=== PATIENT | female | born 1935 | race African-American/Black ===

== ENCOUNTER 2025-01-11 08:29 | Inpatient (IN) | payer MEDICARE ==
[~2025-01-11] VITALS: Ht 162.6 cm; Wt 50.8 kg
[~2025-01-11 08:29] MED LIST: AMLO5TAB88 PO; ASPI-1497 PO; ATOR20TA65 PO; AZOPT EACHEYE; BUDE0.5A3; CALC-586 PO; CALC0.253 MT; FAMO20TA8 PO; FLUT16SP15 BOTHNSTRLS; LATA2.5D14 EACHEYE; LEVO137T2 PO; LIDO-53 TP; MEGE400O40 PO; MIRA25TA PO; OMEP20CA14 PO; SODI650T PO; VERA180C3 PO
[2025-01-11 09:41] LABS: BASOPHILS % 0.3 % (0.0-2.0); EOSINOPHILS % 0.9 % (0.0-5.0); HEMATOCRIT. 32.0 % (36.0-48.0); HEMOGLOBIN. 10.5 g/dL (12.0-16.0); LYMPHOCYTES % 20.6 % (20.0-50.0); MEAN PLATELET VOLUME 7.0 fl (7.4-10.4); MONOCYTES % 8.6 % (2.0-8.0); NEUTROPHILS % 69.6 % (40.0-76.0); PLATELET 364 x1000/uL (130-400); RED BLOOD CELL COUNT 3.62 mill/uL (4.2-5.4); RED CELL DISTRIBUTION WIDTH 14.7 % (11.6-14.6)
[2025-01-11 09:48] LABS: CREATININE 3.6 mg/dL (0.6-1.0); UREA NITROGEN BLOOD 55 mg/dL (9-23)
[2025-01-11 09:49] LABS: TROPONIN I HIGH SENSITIVITY 20 ng/L (3.0-34)
[2025-01-11] MEDS ORDERED: ACETAMINOPHEN 325MG TABLET PO PRN (11:30)
[2025-01-11] MEDS ORDERED: DOCUSATE SODIUM 100MG CAPSULE PO PRN (11:30)
[2025-01-11] MEDS ORDERED: ONDANSETRON HCL 4MG/2ML INJ IV PRN (11:30)
[2025-01-11] MEDS ORDERED: SODIUM BICARBONATE 8.4% 50MEQ/50ML SYR IV SCH (12:45)
[2025-01-11] MEDS: ENOXAPARIN 30MG/0.3ML SYR SUBCUT SCH (13:00)
[2025-01-11 13:26] LABS: BG BASE EXCESS -3.5 mmol/L (-2.0-3.0); BG CARBOXYHEMOGLOBIN 0.1 % (0.5-1.5); BG DEOXYHEMOGLOBIN 2.2 % (0.0-5.0); BG FRACTION INSPIRED OXYGEN 32; BG HCO3 ACT 18.0 mmol/L (21.0-28.0); BG METHEMOGLOBIN 0.3 % (0.5-1.5); BG OXYGEN SATURATION 97.8 % (94.0-98.0); BG OXYHEMOGLOBIN 97.4 % (94.0-98.0); BG PCO2 22.6 mmHg (32.0-45.0); BG PH 7.520 (7.350-7.450); BG PO2 97.8 mmHg (83.0-108.0); BG SAMPLE SITE RIGHT RADIAL; BG TOTAL HEMOGLOBIN 10.3 g/dL (12.0-16.0); BG VENT MODE NASAL CANNULA
[2025-01-11] MEDS: FUROSEMIDE 100MG/10ML VIAL IVP ONE (13:45)
[2025-01-11 15:50] LABS: CREATINE KINASE MB FRACTION 5.4 ng/mL (0.5-3.6); TROPONIN I HIGH SENSITIVITY 16.0 ng/L (3.0-34)
[2025-01-11 16:30] VITALS: BP 136/78; PULSE 88; RESP 22; TEMP 36.4; O2SAT 100
[2025-01-11 17:23] VITALS: BP 136/68; PULSE 88; RESP 22; TEMP 36.4736
[2025-01-11] MEDS: POLYETHYLENE GLYCOL 3350 (17GM) 1 DOSE PACK PO SCH (17:48)
[2025-01-11 18:10] LABS: CLARITY URINE CLEAR (CLEAR); COLOR URINE YELLOW (YELLOW); GLUCOSE URINE NEGATIVE (NEGATIVE); KETONES URINE NEGATIVE (NEGATIVE); LEUKOCYTE ESTERASE URINE NEGATIVE (NEGATIVE); NITRITE URINE NEGATIVE (NEGATIVE); OCCULT BLOOD URINE NEGATIVE (NEGATIVE); PH URINE 5.5 (4.5-8.0); PROTEIN URINE 1+ (NEGATIVE); SPECIFIC GRAVITY URINE 1.010 (1.005-1.030); UROBILINOGEN URINE 0.2 E.U./dL (0.2-1.0)
[2025-01-11 18:31] LABS: PROTEIN URINE RANDOM 30.0 mg/dL
[2025-01-11 18:34] LABS: CREATININE URINE RANDOM 46.4 mg/dL
[2025-01-11 18:41] LABS: BACTERIA URINE NONE SEEN; RBC URINE NONE SEEN /hpf (0-2); SQUAMOUS EPITHELIAL CELL URINE NONE SEEN /lpf (RARE/1+); WBC URINE NONE SEEN /hpf (0-2)
[2025-01-11 20:00] VITALS: BP 167/82; PULSE 85; RESP 18; TEMP 36.7; O2SAT 97
[2025-01-11] MEDS: ATORVASTATIN CALCIUM 20MG TABLET PO SCH (20:24)
[2025-01-12] VITALS: BP 136/81; PULSE 78; RESP 20; TEMP 37; O2SAT 99
[2025-01-12 04:00] VITALS: BP 152/89; PULSE 85; RESP 20; TEMP 36.7; O2SAT 99
[2025-01-12] MEDS: LEVOTHYROXINE SODIUM 137MCG TABLET PO SCH (06:30)
[2025-01-12 07:04] LABS: BASOPHILS % 0.3 % (0.0-2.0); EOSINOPHILS % 1.5 % (0.0-5.0); HEMATOCRIT. 32.6 % (36.0-48.0); HEMOGLOBIN. 11.2 g/dL (12.0-16.0); LYMPHOCYTES % 23.6 % (20.0-50.0); MEAN PLATELET VOLUME 7.3 fl (7.4-10.4); MONOCYTES % 10.4 % (2.0-8.0); NEUTROPHILS % 64.2 % (40.0-76.0); PLATELET 336 x1000/uL (130-400); RED BLOOD CELL COUNT 3.76 mill/uL (4.2-5.4); RED CELL DISTRIBUTION WIDTH 14.4 % (11.6-14.6)
[2025-01-12 07:19] LABS: T4 FREE 1.42 ng/dL (0.89-1.76)
[2025-01-12 07:21] LABS: CREATININE 3.4 mg/dL (0.6-1.0); UREA NITROGEN BLOOD 52.0 mg/dL (9-23)
[2025-01-12 08:00] VITALS: BP 126/87; PULSE 92; RESP 18; TEMP 36; O2SAT 97
[2025-01-12] MEDS: ASPIRIN 81MG TABLET PO SCH (08:17)
[2025-01-12] MEDS: PANTOPRAZOLE SODIUM 40 MG/VIAL IV SCH (08:17)
[2025-01-12] MEDS ORDERED: ENOXAPARIN 40MG/0.4ML SYR SUBCUT SCH (09:00)
[2025-01-12 12:00] VITALS: BP 136/80; PULSE 91; RESP 18; TEMP 35.9; O2SAT 97
[2025-01-12 15:24] LABS: PHOSPHORUS 5.1 mg/dL (2.5-4.9)
[2025-01-12 16:00] VITALS: BP 143/88; PULSE 97; RESP 18; TEMP 36; O2SAT 98
[2025-01-12 20:00] VITALS: BP 157/86; PULSE 94; RESP 20; TEMP 36.5; O2SAT 99
[2025-01-13] VITALS (8 sets, daily range): BP systolic 119–146; BP diastolic 74–94; PULSE 78–100; RESP 18–22; TEMP 35.9–36.5; O2SAT 92–100
[2025-01-13] MEDS: IPRATROPIUM/ALBUTEROL 0.5-3(2.5)MG/3ML NEB HHN PRN (03:32)
[2025-01-13] MEDS: CLONIDINE 0.1MG TABLET PO PRN (08:30)
[2025-01-13 13:39] LABS: BASOPHILS % 0.3 % (0.0-2.0); EOSINOPHILS % 1.9 % (0.0-5.0); HEMATOCRIT. 30.7 % (36.0-48.0); HEMOGLOBIN. 10.2 g/dL (12.0-16.0); LYMPHOCYTES % 24.0 % (20.0-50.0); MEAN PLATELET VOLUME 7.2 fl (7.4-10.4); MONOCYTES % 13.4 % (2.0-8.0); NEUTROPHILS % 60.4 % (40.0-76.0); PLATELET 321 x1000/uL (130-400); RED BLOOD CELL COUNT 3.49 mill/uL (4.2-5.4); RED CELL DISTRIBUTION WIDTH 14.6 % (11.6-14.6)
[2025-01-13 13:56] LABS: CREATININE 3.1 mg/dL (0.6-1.0)
[2025-01-13 13:57] LABS: UREA NITROGEN BLOOD 46.0 mg/dL (9-23)
[2025-01-13] MEDS: MONTELUKAST SODIUM 10MG TABLET PO SCH (18:17)
[2025-01-13] MEDS: BUDESONIDE 0.5MG/2ML NEB HHN SCH (20:20)
[2025-01-13] MEDS: IPRATROPIUM/ALBUTEROL 0.5-3(2.5)MG/3ML NEB HHN SCH (20:24)
[2025-01-13] MEDS: PANTOPRAZOLE SODIUM 40 MG/VIAL IV SCH (21:23)
[2025-01-14] VITALS (9 sets, daily range): BP systolic 117–140; BP diastolic 75–92; PULSE 87–100; RESP 16–22; TEMP 36.6–36.7; O2SAT 98–100
[2025-01-14 07:19] LABS: BASOPHILS % 0.2 % (0.0-2.0); EOSINOPHILS % 1.9 % (0.0-5.0); HEMATOCRIT. 30.2 % (36.0-48.0); HEMOGLOBIN. 10.2 g/dL (12.0-16.0); LYMPHOCYTES % 28.7 % (20.0-50.0); MEAN PLATELET VOLUME 7.3 fl (7.4-10.4); MONOCYTES % 13.4 % (2.0-8.0); NEUTROPHILS % 55.8 % (40.0-76.0); PLATELET 314 x1000/uL (130-400); RED BLOOD CELL COUNT 3.45 mill/uL (4.2-5.4); RED CELL DISTRIBUTION WIDTH 14.5 % (11.6-14.6)
[2025-01-14 07:36] LABS: CREATININE 3.1 mg/dL (0.6-1.0); UREA NITROGEN BLOOD 45.0 mg/dL (9-23)
[2025-01-14] MEDS: LORATADINE 10MG TABLET PO SCH (14:43)
[2025-01-14] MEDS: FAMOTIDINE 20MG TABLET PO SCH (21:32)
[2025-01-15] VITALS (9 sets, daily range): BP systolic 125–166; BP diastolic 73–92; PULSE 83–100; RESP 18–24; TEMP 36.3–36.8; O2SAT 95–100
[2025-01-15 06:34] LABS: BASOPHILS % 0.3 % (0.0-2.0); EOSINOPHILS % 2.4 % (0.0-5.0); HEMATOCRIT. 29.3 % (36.0-48.0); HEMOGLOBIN. 9.9 g/dL (12.0-16.0); LYMPHOCYTES % 26.5 % (20.0-50.0); MEAN PLATELET VOLUME 7.0 fl (7.4-10.4); MONOCYTES % 12.9 % (2.0-8.0); NEUTROPHILS % 57.9 % (40.0-76.0); PLATELET 308 x1000/uL (130-400); RED BLOOD CELL COUNT 3.35 mill/uL (4.2-5.4); RED CELL DISTRIBUTION WIDTH 14.8 % (11.6-14.6)
[2025-01-15 06:58] LABS: CREATININE 3.4 mg/dL (0.6-1.0)
[2025-01-15 06:59] LABS: UREA NITROGEN BLOOD 43.0 mg/dL (9-23)
[2025-01-15] MEDS: ACETAMINOPHEN 325MG TABLET PO PRN (17:24)
[2025-01-16] VITALS (7 sets, daily range): BP systolic 133–165; BP diastolic 86–95; PULSE 76–103; RESP 18–20; TEMP 36.5–36.6; O2SAT 96–100
[2025-01-16 06:33] LABS: BASOPHILS % 0.2 % (0.0-2.0); EOSINOPHILS % 2.3 % (0.0-5.0); HEMATOCRIT. 31.9 % (36.0-48.0); HEMOGLOBIN. 10.8 g/dL (12.0-16.0); LYMPHOCYTES % 24.9 % (20.0-50.0); MEAN PLATELET VOLUME 7.3 fl (7.4-10.4); MONOCYTES % 10.0 % (2.0-8.0); NEUTROPHILS % 62.6 % (40.0-76.0); PLATELET 332 x1000/uL (130-400); RED BLOOD CELL COUNT 3.65 mill/uL (4.2-5.4); RED CELL DISTRIBUTION WIDTH 14.8 % (11.6-14.6)
[2025-01-16 06:46] LABS: CREATININE 3.2 mg/dL (0.6-1.0); UREA NITROGEN BLOOD 42.0 mg/dL (9-23)
[2025-01-16] MEDS ORDERED: CLAR10 PO (11:52)
[2025-01-16] MEDS ORDERED: MONT-46 PO (11:52)
== END 2025-01-16 13:31 | disposition home or self-care (01) | DRG 166 ==
LOC: ER 08:29 → 8WST 10:24 → EDBEDREQ 11:34
PROVIDERS: ADMIT Family Medicine Adult Medicine; ATTEND Family Medicine Adult Medicine
PROC: 0JBP0ZZ Excision of Left Lower Leg Subcutaneous Tissue and Fascia, Open Approach (ICD-10-PCS; principal; 2025-01-15)
DX: J96.01 Acute respiratory failure with hypoxia (principal); I50.33 Acute on chronic diastolic (congestive) heart failure; I13.0 Hypertensive heart and chronic kidney disease with heart failure and stage 1 through stage 4 chronic kidney disease, or unspecified chronic kidney disease; E87.20 Acidosis, unspecified; N18.4 Chronic kidney disease, stage 4 (severe); N17.9 Acute kidney failure, unspecified; J44.1 Chronic obstructive pulmonary disease with (acute) exacerbation; S81.012A Laceration without foreign body, left knee, initial encounter; D64.9 Anemia, unspecified; E89.0 Postprocedural hypothyroidism; E83.51 Hypocalcemia; E78.5 Hyperlipidemia, unspecified; J06.9 Acute upper respiratory infection, unspecified; K76.89 Other specified diseases of liver; C50.919 Malignant neoplasm of unspecified site of unspecified female breast; J44.89 Other specified chronic obstructive pulmonary disease; N28.1 Cyst of kidney, acquired; X58.XXXA Exposure to other specified factors, initial encounter; Z66 Do not resuscitate; Z85.850 Personal history of malignant neoplasm of thyroid; Z85.3 Personal history of malignant neoplasm of breast; Z87.891 Personal history of nicotine dependence; Z88.0 Allergy status to penicillin; Z90.710 Acquired absence of both cervix and uterus; Y93.89 Activity, other specified; Y92.89 Other specified places as the place of occurrence of the external cause; Y99.8 Other external cause status
CPT/HCPCS: 36415; 36600; 71045; 76770; 80048; 81003; 82375; 82550; 82553; 82570; 82728; 82805; 83540; 83550; 83880; 83970; 84100; 84156; 84439; 84443; 84484; 85025; 93005; 94070; 94640; 94760; 99285; J1650; J1938; J2470; J3490; J7626

== ENCOUNTER 2025-05-29 19:10 | Inpatient (IN) | payer MEDICARE ==
[~2025-05-29] VITALS: Ht 162.6 cm; Wt 48.7 kg
[~2025-05-29 19:10] MED LIST changes: -AMLO5TAB88 PO; -CALC-586 PO; -CALC0.253 MT; -FAMO20TA8 PO; -LATA2.5D14 EACHEYE; +LATA2.5D7 EACHEYE; -MEGE400O40 PO; -MIRA25TA PO; +MONT-46 PO; -OMEP20CA14 PO; -SODI650T PO; -VERA180C3 PO; +[UNRECOGNIZED DRUG - CODE] PO
[2025-05-29] MEDS: SODIUM CHLORIDE 0.9% 1,000 ML IV ONE (20:19)
[2025-05-29] MEDS: MORPHINE SULFATE 4 MG/ML INJ (FOR IV/IM USE) IV ONE (20:19)
[2025-05-29] MEDS: ONDANSETRON HCL 4MG/2ML INJ IV ONE (20:20)
[2025-05-29 20:25] LABS: BASOPHILS % 0.4 % (0.0-2.0); EOSINOPHILS % 1.2 % (0.0-5.0); HEMATOCRIT. 38.4 % (36.0-48.0); HEMOGLOBIN. 13.0 g/dL (12.0-16.0); LYMPHOCYTES % 19.4 % (20.0-50.0); MEAN PLATELET VOLUME 7.6 fl (7.4-10.4); MONOCYTES % 9.9 % (2.0-8.0); NEUTROPHILS % 69.1 % (40.0-76.0); PLATELET 248 x1000/uL (130-400); RED BLOOD CELL COUNT 4.45 mill/uL (4.2-5.4); RED CELL DISTRIBUTION WIDTH 14.9 % (11.6-14.6)
[2025-05-29 20:37] LABS: UREA NITROGEN BLOOD 14 mg/dL (9-23)
[2025-05-29 20:38] LABS: ASPARTATE AMINOTRANSFERASE 72 IU/L (<34); PROTEIN TOTAL 8.6 g/dL (6.0-8.3)
[2025-05-29 20:39] LABS: BILIRUBIN DIRECT 0.5 mg/dL (<=3.0)
[2025-05-29 20:40] LABS: BILIRUBIN TOTAL 2.5 mg/dL (0.1-1.0)
[2025-05-29 20:49] LABS: CREATININE 2.2 mg/dL (0.6-1.0)
[2025-05-29 20:53] LABS: TROPONIN I HIGH SENSITIVITY 342 ng/L (3.0-34)
[2025-05-29 21:03] LABS: CLARITY URINE CLEAR (CLEAR); COLOR URINE RED (YELLOW); GLUCOSE URINE NEGATIVE (NEGATIVE); KETONES URINE NEGATIVE (NEGATIVE); LEUKOCYTE ESTERASE URINE 2+ (NEGATIVE); NITRITE URINE POSITIVE (NEGATIVE); OCCULT BLOOD URINE 2+ (NEGATIVE); PH URINE >=9.0 (4.5-8.0); PROTEIN URINE 2+ (NEGATIVE); SPECIFIC GRAVITY URINE 1.009 (1.005-1.030); UROBILINOGEN URINE 0.2 E.U./dL (0.2-1.0)
[2025-05-29 21:10] LABS: BACTERIA URINE 1+; SQUAMOUS EPITHELIAL CELL URINE RARE /lpf (RARE/1+)
[2025-05-29] MEDS: LEVOFLOXACIN 750MG PREMIX 150 ML IV ONE (22:06)
[2025-05-29] MEDS ORDERED: ACETAMINOPHEN 325MG TABLET PO PRN (23:30)
[2025-05-29] MEDS ORDERED: IPRATROPIUM/ALBUTEROL 0.5-3(2.5)MG/3ML NEB HHN PRN (23:30)
[2025-05-30] VITALS (9 sets, daily range): BP systolic 138–160; BP diastolic 80–98; PULSE 76–88; RESP 16–21; TEMP 36.2–36.8072; O2SAT 96–100
[2025-05-30] MEDS ORDERED: CLONIDINE 0.1MG TABLET PO PRN (02:15)
[2025-05-30] MEDS: ACETAMINOPHEN 325MG TABLET PO PRN (04:40)
[2025-05-30] MEDS: VERAPAMIL HCL 40MG TABLET PO SCH (07:04)
[2025-05-30 07:46] LABS: BASOPHILS % 0.4 % (0.0-2.0); EOSINOPHILS % 1.3 % (0.0-5.0); HEMATOCRIT. 34.4 % (36.0-48.0); HEMOGLOBIN. 11.5 g/dL (12.0-16.0); LYMPHOCYTES % 15.8 % (20.0-50.0); MEAN PLATELET VOLUME 7.7 fl (7.4-10.4); MONOCYTES % 11.6 % (2.0-8.0); NEUTROPHILS % 70.9 % (40.0-76.0); PLATELET 239 x1000/uL (130-400); RED BLOOD CELL COUNT 3.98 mill/uL (4.2-5.4); RED CELL DISTRIBUTION WIDTH 14.8 % (11.6-14.6)
[2025-05-30 07:48] LABS: *AMPHETAMINES SCREEN URINE NEGATIVE (NEGATIVE); *BARBITURATES SCREEN URINE NEGATIVE (NEGATIVE); *BENZODIAZEPINES SCREEN URINE NEGATIVE (NEGATIVE); *COCAINE SCREEN URINE NEGATIVE (NEGATIVE); METHADONE URINE SCREEN NEGATIVE (NEGATIVE)
[2025-05-30 07:49] LABS: OPIATES URINE SCREEN NEGATIVE (NEGATIVE)
[2025-05-30 07:50] LABS: PHENCYCLIDINE URINE SCREEN NEGATIVE (NEGATIVE)
[2025-05-30 07:51] LABS: CANNABINOID URINE SCREEN NEGATIVE (NEGATIVE); ECSTASY MDMA SCREEN URINE NEGATIVE (NEGATIVE)
[2025-05-30 07:58] LABS: CREATININE 2.5 mg/dL (0.6-1.0); TRIGLYCERIDE 94.0 mg/dL (0-150); UREA NITROGEN BLOOD 19.0 mg/dL (9-23)
[2025-05-30 07:59] LABS: LDL CHOLESTEROL 88.0 mg/dL (5-100)
[2025-05-30 08:02] LABS: T4 FREE 1.83 ng/dL (0.89-1.76)
[2025-05-30 08:22] LABS: PROTEIN TOTAL 7.0 g/dL (6.0-8.3)
[2025-05-30 08:23] LABS: ASPARTATE AMINOTRANSFERASE 54 IU/L (<34); BILIRUBIN DIRECT 0.3 mg/dL (<=3.0); BILIRUBIN TOTAL 1.6 mg/dL (0.1-1.0); PHOSPHORUS 4.1 mg/dL (2.5-4.9)
[2025-05-30] MEDS: CEFTRIAXONE 1GM/50ML 50 ML IV SCH (08:25)
[2025-05-30] MEDS: PANTOPRAZOLE SODIUM 40 MG/VIAL IV SCH (08:26)
[2025-05-30] MEDS: ENOXAPARIN 30MG/0.3ML SYR SUBCUT SCH (08:26)
[2025-05-30] MEDS: LEVOTHYROXINE SODIUM 137MCG TABLET PO NR (08:29)
[2025-05-30] MEDS: IPRATROPIUM/ALBUTEROL 0.5-3(2.5)MG/3ML NEB HHN SCH (08:58)
[2025-05-30] MEDS: BUDESONIDE 0.5MG/2ML NEB HHN SCH (08:58)
[2025-05-30] MEDS ORDERED: AMLODIPINE 10MG TABLET PO SCH (09:00)
[2025-05-30 10:12] LABS: TROPONIN I HIGH SENSITIVITY 1413 ng/L (3.0-34)
[2025-05-30] MEDS ORDERED: ENOXAPARIN 60MG/0.6ML SYR SUBCUT SCH (11:30)
[2025-05-30 13:05] LABS: INR 1.2
[2025-05-30] MEDS ORDERED: ASPIRIN 81MG EC TABLET PO SCH (13:45)
[2025-05-30] MEDS: LISINOPRIL 5MG TABLET PO SCH (16:08)
[2025-05-30] MEDS: MONTELUKAST SODIUM 10MG TABLET PO SCH (16:10)
[2025-05-30] MEDS: DICLOFENAC SODIUM 1% GEL 50GM TOP SCH (16:11)
[2025-05-30] MEDS: ONDANSETRON HCL 4MG/2ML INJ IV PRN (16:22)
[2025-05-30] MEDS ORDERED: MONTELUKAST SODIUM 10MG TABLET PO SCH (17:00)
[2025-05-30] MEDS ORDERED: ENOXAPARIN 30MG/0.3ML SYR SUBCUT NR (17:30)
[2025-05-30] MEDS ORDERED: ASPIRIN 325MG EC TABLET PO NR (18:00)
[2025-05-30] MEDS: LATANOPROST 0.005% OPHTH DROPS 2.5ML EACHEYE SCH (21:14)
[2025-05-30] MEDS: METOPROLOL TARTRATE 25MG TABLET PO SCH (21:14)
[2025-05-30] MEDS: ATORVASTATIN CALCIUM 20MG TABLET PO SCH (21:14)
[2025-05-31] VITALS (7 sets, daily range): BP systolic 110–121; BP diastolic 66–70; PULSE 56–86; RESP 15–20; TEMP 36.3–36.6; O2SAT 83–99
[2025-05-31] MEDS: LEVOTHYROXINE SODIUM 137MCG TABLET PO SCH (07:37)
[2025-05-31 08:09] LABS: BASOPHILS % 0.6 % (0.0-2.0); EOSINOPHILS % 1.8 % (0.0-5.0); HEMATOCRIT. 34.7 % (36.0-48.0); HEMOGLOBIN. 11.4 g/dL (12.0-16.0); LYMPHOCYTES % 19.8 % (20.0-50.0); MEAN PLATELET VOLUME 8.0 fl (7.4-10.4); MONOCYTES % 12.4 % (2.0-8.0); NEUTROPHILS % 65.4 % (40.0-76.0); PLATELET 224 x1000/uL (130-400); RED BLOOD CELL COUNT 3.98 mill/uL (4.2-5.4); RED CELL DISTRIBUTION WIDTH 15.1 % (11.6-14.6)
[2025-05-31 08:37] LABS: UREA NITROGEN BLOOD 25 mg/dL (9-23)
[2025-05-31 08:38] LABS: TROPONIN I HIGH SENSITIVITY 1174 ng/L (3.0-34)
[2025-05-31 08:39] LABS: BILIRUBIN DIRECT 0.2 mg/dL (<=3.0); PHOSPHORUS 4.7 mg/dL (2.5-4.9)
[2025-05-31 09:02] LABS: CREATININE 3.6 mg/dL (0.6-1.0)
[2025-05-31] MEDS ORDERED: DEXT 5%/0.45% NACL 500ML 500 ML IV ONE (12:30)
[2025-05-31 13:46] LABS: HEPATITIS A AB IGM NEGATIVE (Negative); HEPATITIS B CORE AB IGM NEGATIVE (Negative)
[2025-05-31 13:47] LABS: HEPATITIS C AB NON REACTIVE (Neg) (Negative)
[2025-05-31 16:17] LABS: TROPONIN I HIGH SENSITIVITY 437 ng/L (3.0-34)
[2025-05-31 18:52] LABS: COLOR URINE YELLOW (YELLOW); GLUCOSE URINE NEGATIVE (NEGATIVE); KETONES URINE NEGATIVE (NEGATIVE); LEUKOCYTE ESTERASE URINE 2+ (NEGATIVE); NITRITE URINE NEGATIVE (NEGATIVE); OCCULT BLOOD URINE 3+ (NEGATIVE); PH URINE 7.0 (4.5-8.0); PROTEIN URINE 2+ (NEGATIVE); SPECIFIC GRAVITY URINE 1.012 (1.005-1.030); UROBILINOGEN URINE 0.2 E.U./dL (0.2-1.0)
[2025-05-31 19:31] LABS: CLARITY URINE SL HAZY (CLEAR)
[2025-05-31 19:32] LABS: BACTERIA URINE 1+; MUCUS URINE TRACE /lpf (< = 2+); RBC URINE 0-2 /hpf (0-2); RENAL EPITHELIAL CELLS URINE Rare /lpf; SQUAMOUS EPITHELIAL CELL URINE 1+ /lpf (RARE/1+)
[2025-05-31] MEDS: MAGNESIUM 2 G PREMIX 50 ML IV NR (23:27)
[2025-06-01] VITALS (17 sets, daily range): BP systolic 88–148; BP diastolic 51–78; PULSE 55–98; RESP 14–20; TEMP 36.4–36.61404; O2SAT 94–99
[2025-06-01] MEDS: MAGNESIUM 2 G PREMIX 50 ML IV NR (05:32)
[2025-06-01 06:52] LABS: BASOPHILS % 0.4 % (0.0-2.0); EOSINOPHILS % 2.0 % (0.0-5.0); HEMATOCRIT. 30.7 % (36.0-48.0); HEMOGLOBIN. 10.3 g/dL (12.0-16.0); LYMPHOCYTES % 25.1 % (20.0-50.0); MEAN PLATELET VOLUME 7.8 fl (7.4-10.4); MONOCYTES % 13.2 % (2.0-8.0); NEUTROPHILS % 59.3 % (40.0-76.0); PLATELET 207 x1000/uL (130-400); RED BLOOD CELL COUNT 3.57 mill/uL (4.2-5.4); RED CELL DISTRIBUTION WIDTH 15.2 % (11.6-14.6)
[2025-06-01 07:42] LABS: CREATININE 4.2 mg/dL (0.6-1.0); UREA NITROGEN BLOOD 33 mg/dL (9-23)
[2025-06-01 07:43] LABS: PROTEIN TOTAL 6.2 g/dL (6.0-8.3)
[2025-06-01 07:44] LABS: ASPARTATE AMINOTRANSFERASE 21 IU/L (<34); BILIRUBIN DIRECT 0.1 mg/dL (<=3.0); BILIRUBIN TOTAL 0.5 mg/dL (0.1-1.0)
[2025-06-01] MEDS: ENOXAPARIN 60MG/0.6ML SYR SUBCUT SCH (09:00)
[2025-06-01] MEDS ORDERED: LISI-186 PO (14:28)
[2025-06-01] MEDS ORDERED: VER40 PO (14:28)
[2025-06-01] MEDS ORDERED: METO-396 PO (14:28)
[2025-06-02] VITALS (7 sets, daily range): BP systolic 121–143; BP diastolic 62–73; PULSE 64–75; RESP 16–18; TEMP 36.2–36.8; O2SAT 93–99
[2025-06-02 08:22] LABS: BASOPHILS % 0.4 % (0.0-2.0); EOSINOPHILS % 2.4 % (0.0-5.0); HEMATOCRIT. 30.1 % (36.0-48.0); HEMOGLOBIN. 10.2 g/dL (12.0-16.0); LYMPHOCYTES % 30.0 % (20.0-50.0); MEAN PLATELET VOLUME 7.9 fl (7.4-10.4); MONOCYTES % 13.9 % (2.0-8.0); NEUTROPHILS % 53.3 % (40.0-76.0); PLATELET 229 x1000/uL (130-400); RED BLOOD CELL COUNT 3.50 mill/uL (4.2-5.4); RED CELL DISTRIBUTION WIDTH 15.3 % (11.6-14.6)
[2025-06-02 08:28] LABS: CREATININE 3.4 mg/dL (0.6-1.0); UREA NITROGEN BLOOD 17.0 mg/dL (9-23)
[2025-06-02 14:54] LABS: PROTEIN TOTAL 6.0 g/dL (6.0-8.3)
[2025-06-02 14:56] LABS: ASPARTATE AMINOTRANSFERASE 18 IU/L (<34); BILIRUBIN DIRECT 0.1 mg/dL (<=3.0); BILIRUBIN TOTAL 0.4 mg/dL (0.1-1.0)
== END 2025-06-02 12:45 | disposition home or self-care (01) | DRG 871 ==
LOC: ER 19:10 → EDBEDREQ 22:13 → EDBEDREQTM 22:13 → ENRESERV 23:28 → 5WST 23:52
PROVIDERS: ADMIT Internal Medicine; ATTEND Internal Medicine
PROC: 5A1D70Z Performance of Urinary Filtration, Intermittent, Less than 6 Hours Per Day (ICD-10-PCS; principal; 2025-06-01)
DX: A41.9 Sepsis, unspecified organism (principal); I21.A1 Myocardial infarction type 2; N18.6 End stage renal disease; I13.2 Hypertensive heart and chronic kidney disease with heart failure and with stage 5 chronic kidney disease, or end stage renal disease; N17.9 Acute kidney failure, unspecified; Z99.2 Dependence on renal dialysis; N30.91 Cystitis, unspecified with hematuria; K76.89 Other specified diseases of liver; D64.9 Anemia, unspecified; E89.0 Postprocedural hypothyroidism; J44.89 Other specified chronic obstructive pulmonary disease; E05.90 Thyrotoxicosis, unspecified without thyrotoxic crisis or storm; N20.0 Calculus of kidney; E78.5 Hyperlipidemia, unspecified; K57.30 Diverticulosis of large intestine without perforation or abscess without bleeding; H40.9 Unspecified glaucoma; E80.6 Other disorders of bilirubin metabolism; M25.552 Pain in left hip; M25.551 Pain in right hip; K82.8 Other specified diseases of gallbladder; F17.210 Nicotine dependence, cigarettes, uncomplicated; Z96.649 Presence of unspecified artificial hip joint; Z79.51 Long term (current) use of inhaled steroids; Z79.82 Long term (current) use of aspirin; Z85.3 Personal history of malignant neoplasm of breast; Z85.850 Personal history of malignant neoplasm of thyroid; Z88.0 Allergy status to penicillin; Z90.11 Acquired absence of right breast and nipple; Z90.710 Acquired absence of both cervix and uterus
CPT/HCPCS: 36415; 71045; 74176; 74181; 76705; 80048; 80061; 80076; 80305; 81003; 82248; 82550; 83036; 83605; 83735; 83880; 84100; 84145; 84439; 84443; 84484; 85025; 85044; 86705; 86709; 87340; 90935; 93005; 93306; 93970; 94070; 94640; 94664; 96365; 96375; 99285; A4606; J0696; J1650; J1956; J2270; J2405; J2470; J3475; J7030; J7626